=== PATIENT | female | born 1970 | race Caucasian/White ===

== ENCOUNTER 2018-04-06 15:19 | Observation (INO) | payer OTHER ==
[2018-04-06] MEDS ORDERED: TORAdol 30 mg Injection IV ONE (15:35)
[2018-04-06] MEDS ORDERED: Sodium Chloride 0.9% 1000 ML 1,000 ML IV STA (15:35)
[2018-04-06] MEDS ORDERED: TORAdol 30 mg Injection ONE (15:39)
--- NOTE | 2018-04-06 15:41 | ERPHSYRPT ---
- History of Present Illness Time Seen by Provider: 04/06/18 15:36 Historian: patient Exam Limitations: no limitations Patient Subjective Stated Complaint: [place] something burst or rupture in lower right quadrant of abdomen Triage Nursing Assessment: Pt stated that she felt something burst in her right lower quadrant and it immediately became warm to the touch, was laying on the couch and felt a sharp pain and when she sat up is when she felt something burst , vitals wnl, pulses normal, bowel sounds heard in all 4 quadrants, had been to the MD earlier today for a UTI Physician History: 42-year-old white female arrives with complaint of right lower quadrant abdominal pain since 4:30 this morning she also states she has some right flank pain. Pain is described as sharp severe. Patient states that she was seen initially by her family doctor thought to have a urinary tract infection however at home she states she suddenly felt markedly worse and felt like she had a tearing pain in her right lower quadrant. She has no vomiting no diarrhea no melena no hematochezia no urinary symptoms. Past medical history is negative. Past surgical history is tubal ligation. . Social history denies tobacco alcohol or illicit drug use. Timing/Duration: today (pain began this morning at 04:30, became much worse this afternoon) Activities at Onset: none Quality: sharpness Abdominal Pain Onset Location: RLQ, flank (ight flank) Pain Radiation: RLQ, flank (right flank) Severity of Pain-Max: moderate Severity of Pain-Current: moderate Modifying Factors: Improves With: nothing Associated Symptoms: No back, No chest pain, No diaphoresis, No diarrhea, No fever/chills, No fatigue, No headache, No heartburn, No loss of appetite, No nausea, No neck pain, No rash, No shortness of breath, No syncope, No vomiting, No weakness Previous symptoms: no prior history, recently seen (seen by her family doctor today) Allergies/Adverse Reactions: No Known Drug Allergies Allergy (Verified 04/06/18 15:31) Home Medications: Esomeprazole Magnesium [Heartburn Treatment] 20 mg PO HS 04/06/18 [History] Sulfamethoxazole/Trimethoprim [Sulfamethoxazole-Tmp Ds Tablet] 1 each PO BID [History] Trazodone HCl 50 mg [Desyrel 50 mg] 50 mg PO BID 04/06/18 [History] - Review of Systems Constitutional: No Fever, No Chills Eyes: No Symptoms Ears, Nose, & Throat: No Symptoms Respiratory: No Cough, No Dyspnea Cardiac: No Chest Pain, No Edema, No Syncope Abdominal/Gastrointestinal: Abdominal Pain, No Nausea, No Vomiting, No Diarrhea , No Constipation, No Hematemesis, No Hematochezia, No Melena, No Dysphagia, No Appetite Changes Genitourinary Symptoms: Flank Pain (Right flank pain), No Dysuria Musculoskeletal: No Back Pain, No Neck Pain Skin: No Rash Neurological: No Dizziness, No Focal Weakness, No Sensory Changes Psychological: No Symptoms Endocrine: No Symptoms All Other Systems: Reviewed and Negative - Past Medical History Pertinent Past Medical History: Yes GI Medical History: GERD - Past Surgical History Past Surgical History: Yes Genitourinary: Other Female Surgical History: Tubal Ligation (she smokes) - Social History Smoking Status: Never smoker Exposure to second hand smoke: No Drug Use: none Patient Lives Alone: No - Female History Hx Now: No (tubal) - Nursing Vital Signs Nursing Vital Signs: Initial Vital Signs Temperature 97.7 F 04/06/18 15:19 Pulse Rate 59 L 04/06/18 15:19 Blood Pressure 123/55 04/06/18 15:19 O2 Sat by Pulse Oximetry 100 04/06/18 15:19 Pain Scale Pain Intensity 10 - Physical Exam General Appearance: moderate distress ( and drinks), alert Eye Exam: PERRL/EOMI, eyes nml inspection Ears, Nose, Throat Exam: normal ENT inspection, pharynx normal, moist mucous membranes Neck Exam: normal inspection, non-tender, supple, full range of motion Respiratory Exam: normal breath sounds, lungs clear, No respiratory distress Cardiovascular Exam: regular rate/rhythm, normal heart sounds, No murmur, No tachycardia, No bradycardia Gastrointestinal/Abdomen Exam: soft, normal bowel sounds, tenderness (right lower quadrant tenderness), No mass Back Exam: normal inspection, normal range of motion, No CVA tenderness, No vertebral tenderness Extremity Exam: normal inspection, normal range of motion, pelvis stable Neurologic Exam: alert, oriented x 3, cooperative, 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 CT findings favor acute appendicitis with free fluid. No perforation or walled off fluid collection. 2. Incidental hiatal hernia) Ordered Tests: Active Orders 24 hr Category Date Time Status IV Insertion STAT Care 04/06/18 15:35 Active ABDOMEN AND PELVIS W CONTRAST [CT] Stat Exams 04/06/18 16:42 Completed AMYLASE Stat Lab 04/06/18 15:50 Completed CBC W DIFF Stat Lab 04/06/18 15:50 Completed CMP Stat Lab 04/06/18 15:50 Completed HCG QUALITATIVE,SERUM Stat Lab 04/06/18 15:50 Completed LIPASE Stat Lab 04/06/18 15:50 Completed UA W/RFX UR CULTURE Stat Lab 04/06/18 16:10 Completed Medication Summary Generic Name Dose Route Start Last Admin Trade Name Freq PRN Reason Stop Dose Admin Ceftriaxone Sodium/Dextrose 1 g in 50 mls @ 100 mls/hr 04/06/18 17:34 Rocephin 1 Gm-D5w 50 Ml Bag IV 04/06/18 18:03 STAT STA Morphine Sulfate 4 mg 04/06/18 17:45 Morphine Sulfate 4 Mg Inj IV 04/06/18 17:46 STAT ONE Discontinued Medications Generic Name Dose Route Start Last Admin Trade Name Freq PRN Reason Stop Dose Admin Sodium Chloride 1,000 mls @ 999 mls/hr 04/06/18 15:35 Sodium Chloride 0.9% 1000 Ml IV 04/06/18 16:35 .Q1H1M STA Ketorolac Tromethamine 30 mg 04/06/18 15:35 04/06/18 15:54 Toradol 30 Mg Injection IV 04/06/18 15:36 30 mg STAT ONE Administration Ketorolac Tromethamine Confirm 04/06/18 15:39 Toradol 30 Mg Injection Administered 04/06/18 15:40 Dose 30 mg .ROUTE .STK-MED ONE Ondansetron HCl 4 mg 04/06/18 15:45 04/06/18 16:02 Zofran 4 Mg/2 Ml Vial IV 04/06/18 15:46 4 mg STAT ONE Administration Ondansetron HCl Confirm 04/06/18 15:58 Zofran 4 Mg/2 Ml Vial Administered 04/06/18 15:59 Dose 4 mg .ROUTE .STK-MED ONE Lab/Rad Data: Laboratory Result Diagrams 04/06/18 15:50 04/06/18 15:50 Laboratory Results 04/06/18 04/06/18 04/06/18 Range/Units 16:10 15:50 15:50 WBC (4.0-10.5) K/mm3 RBC (4.1-5.4) M/mm3 Hgb (12.0-16.0) gm/dl Hct (35-47) % MCV (78-100) fl MCH (26-32) pg MCHC (32-36) g/dl RDW (11.5-14.0) % Plt Count (150-450) K/mm3 MPV (6-9.5) fl Gran % (36.0-66.0) % Eos # (Auto) (0-0.5) Absolute Lymphs (auto) (1.0-4.6) Absolute Monos (auto) (0.0-1.3) Lymphocytes % (24.0-44.0) % Monocytes % (0.0-12.0) % Eosinophils % (0.00-5.0) % Basophils % (0.0-0.4) % Absolute Granulocytes (1.4-6.9) Basophils # (0-0.4) Sodium 139 (137-145) mmol/L Potassium 3.6 (3.5-5.1) mmol/L Chloride 104 (98-107) mmol/L Carbon Dioxide 22 (22-30) mmol/L Anion Gap 17.1 H (5-15) MEQ/L BUN 13 (7-17) mg/dL Creatinine 0.88 (0.52-1.04) mg/dL Estimated GFR > 60.0 ML/MIN Glucose 122 H (74-106) mg/dL Calcium 9.3 (8.4-10.2) mg/dL Total Bilirubin 1.00 (0.2-1.3) mg/dL AST 21 (14-36) U/L ALT 17 (0-35) U/L Alkaline Phosphatase 82 (38-126) U/L Serum Total Protein 8.6 H (6.3-8.2) g/dL Albumin 5.1 H (3.5-5.0) g/dL Amylase 73 (30-110) U/L Lipase 63 (23-300) U/L Serum , Qual NEGATIVE (Negative) Urine Color TANA (YELLOW) Urine Appearance SLIGHTLY CLOUDY (CLEAR) Urine pH 6.0 (5-6) Ur Specific Golva 1.026 (1.005-1.025) Urine Protein 30 (Negative) Urine Ketones TRACE (NEGATIVE) Urine Blood NEGATIVE (0-5) Tunde/ul Urine Nitrite NEGATIVE (NEGATIVE) Urine Bilirubin NEGATIVE (NEGATIVE) Urine Urobilinogen 4 (0-1) mg/dL Ur Leukocyte Esterase NEGATIVE (NEGATIVE) Urine WBC (Auto) 3-5 (0-5) /HPF Urine RBC (Auto) 6-10 (0-2) /HPF U Epithel Cells (Auto) RARE (FEW) /HPF Urine Bacteria (Auto) FEW (NEGATIVE) /HPF Urine Mucus (Auto) MANY (NEGATIVE) /HPF Urine Culture Reflexed NO (NO) Urine Glucose NEGATIVE (NEGATIVE) mg/dL 04/06/ Range/Units 15:50 WBC 19.1 H (4.0-10.5) K/mm3 RBC 4.77 (4.1-5.4) M/mm3 Hgb 14.3 (12.0-16.0) gm/dl Hct 43.6 (35-47) % MCV 91.4 (78-100) fl MCH 30.0 (26-32) pg MCHC 32.8 (32-36) g/dl RDW 13.6 (11.5-14.0) % Plt Count 146 L (150-450) K/mm3 MPV 12.4 H (6-9.5) fl Gran % 86.0 H (36.0-66.0) % Eos # (Auto) 0.01 (0-0.5) Absolute Lymphs (auto) 1.76 (1.0-4.6) Absolute Monos (auto) 0.87 (0.0-1.3) Lymphocytes % 9.2 L (24.0-44.0) % Monocytes % 4.6 (0.0-12.0) % Eosinophils % 0.1 (0.00-5.0) % Basophils % 0.1 (0.0-0.4) % Absolute Granulocytes 16.42 H (1.4-6.9) Basophils # 0.01 (0-0.4) Sodium (137-145) mmol/L Potassium (3.5-5.1) mmol/L Chloride (98-107) mmol/L Carbon Dioxide (22-30) mmol/L Anion Gap (5-15) MEQ/L BUN (7-17) mg/dL Creatinine (0.52-1.04) mg/dL Estimated GFR ML/MIN Glucose (74-106) mg/dL Calcium (8.4-10.2) mg/dL Total Bilirubin (0.2-1.3) mg/dL AST (14-36) U/L ALT (0-35) U/L Alkaline Phosphatase (38-126) U/L Serum Total Protein (6.3-8.2) g/dL Albumin (3.5-5.0) g/dL Amylase (30-110) U/L Lipase (23-300) U/L Serum , Qual (Negative) Urine Color (YELLOW) Urine Appearance (CLEAR) Urine pH (5-6) Ur Specific Golva (1.005-1.025) Urine Protein (Negative) Urine Ketones (NEGATIVE) Urine Blood (0-5) Tunde/ul Urine Nitrite (NEGATIVE) Urine Bilirubin (NEGATIVE) Urine Urobilinogen (0-1) mg/dL Ur Leukocyte Esterase (NEGATIVE) Urine WBC (Auto) (0-5) /HPF Urine RBC (Auto) (0-2) /HPF U Epithel Cells (Auto) (FEW) /HPF Urine Bacteria (Auto) (NEGATIVE) /HPF Urine Mucus (Auto) (NEGATIVE) /HPF Urine Culture Reflexed (NO) Urine Glucose (NEGATIVE) mg/dL - Progress Progress: improved Progress Note: 04/06/18 17:34 This is a 47-year-old white female previously healthy arrives with complaint of right lower quadrant pain since 4:30 this morning. She apparently had been seen by her family doctor felt to have a urinary tract infection however this afternoon she felt like she got markedly worse. Patient arrives with complaint of right lower quadrant abdominal pain. Patient with a white count of 19,000. Patient with CT of the abdomen and pelvis remarkable for acute appendicitis with free fluid. There are no perforations or walled off fluid collections. Patient had initially been given Toradol and 1 L of normal saline as well Zofran for nausea and vomiting who is a get admitted to him discussed the patient's case with Dr. Mora. Will go ahead and place patient on observation will give patient Rocephin 1 g IV will write for morphine for pain normal saline to run at 100 mL per hour. . - Departure Time of Disposition: 17:36 Departure Disposition: Observation Clinical Impression: Abdominal pain Qualifiers: Abdominal location: right lower quadrant Qualified Code(s): R10.31 - Right lower quadrant pain Acute appendicitis Qualifiers: Acute appendicitis type: unspecified acute appendicitis type Qualified Code(s) : K35.80 - Unspecified acute appendicitis Condition: Fair Critical Care Time: No Referrals: DICK DESOUZA [Primary Care Provider] -
[2018-04-06] MEDS ORDERED: Zofran 4 MG/2 ML VIAL IV ONE ×2 (15:45→18:21)
[2018-04-06] MEDS ORDERED: Zofran 4 MG/2 ML VIAL ONE (15:58)
[2018-04-06 16:00] LABS: BASOPHIL % 0.1 % (0.0-0.4); Basophil (Absolute #) 0.01 (0-0.4); Eosinophil % 0.1 % (0.00-5.0); Eosinophil (Absolute #) 0.01 (0-0.5); Granulocyte Absolute (ANC) 16.42 (1.4-6.9); Hematocrit 43.6 % (35-47); Hemoglobin 14.3 gm/dl (12.0-16.0); Lymphocyte (Absolute #) 1.76 (1.0-4.6); Lymphocytes % 9.2 % (24.0-44.0); Mean Cell Volume 91.4 fl (78-100); Mean Corpuscular Hgb Concent. 32.8 g/dl (32-36); Mean Platelet Volume 12.4 fl (6-9.5); Monocyte (Absolute #) 0.87 (0.0-1.3); Monocytes % 4.6 % (0.0-12.0); Platelet Count 146 K/mm3 (150-450); Red Blood Count 4.77 M/mm3 (4.1-5.4); Red Cell Distribution Width 13.6 % (11.5-14.0); White Blood Count 19.1 K/mm3 (4.0-10.5)
[2018-04-06 16:39] LABS: Appearance SLIGHTLY CLOUDY (CLEAR); Bilirubin NEGATIVE (NEGATIVE); Blood NEGATIVE Ery/ul (0-5); Glucose NEGATIVE (NEGATIVE); Ketones TRACE (NEGATIVE); Leukocyte Esterase NEGATIVE (NEGATIVE); Nitrite NEGATIVE (NEGATIVE); Protein,Urine Dip 30 (Negative); Specific Gravity 1.026 (1.005-1.025); Urobilinogen 4 mg/dL (0-1)
[2018-04-06 16:40] LABS: ALBUMIN 5.1 g/dL (3.5-5.0); ALKALINE PHOSPHATASE 82 U/L (38-126); AMYLASE 73 U/L (30-110); ANION GAP 17.1 MEQ/L (5-15); BLOOD UREA NITROGEN 13 mg/dL (7-17); CHLORIDE 104 mmol/L (98-107); Calcium 9.3 mg/dL (8.4-10.2); Carbon Dioxide 22 mmol/L (22-30); Creatinine 1 0.88 mg/dL (0.52-1.04); Glucose 122 mg/dL (74-106); LIPASE 63 U/L (23-300); Potassium 3.6 mmol/L (3.5-5.1); SGOT/AST 21 U/L (14-36); SGPT/ALT 17 U/L (0-35); SODIUM 139 mmol/L (137-145); Total Protein 8.6 g/dL (6.3-8.2)
--- NOTE | 2018-04-06 17:28 | XRAY ---
Indication: Right lower quadrant pain. Multiple contiguous axial images obtained through the abdomen and pelvis prior to and following 80 cc Isovue 370 contrast only. Comparison: None Lung bases demonstrates bibasilar dependent atelectasis. No infiltrate or effusion. Small hiatal hernia. Noncontrasted images are negative for pathologic visceral calcifications/calculi. A few bilateral pelvic phleboliths. Noncontrasted stomach and bowel loops appear nonobstructed. Appendix is abnormally prominent up to 21 mm diameter with wall enhancement and periappendiceal stranding favoring acute appendicitis. Small free fluid but no walled off fluid collection or free air. Postcontrast images demonstrates normal visceral enhancement and renal excretion. Remaining liver, gallbladder, pancreas, spleen, adrenal glands, kidneys, ureters, bladder, uterus, and aorta appear normal in CT appearance and attenuation. No pathologic retroperitoneal lymphadenopathy. Osseous structures intact. No ventral or inguinal hernias. Impression: 1. CT findings favoring acute appendicitis with free fluid. No perforation or walled off fluid collection. 2. Incidental hiatal hernia. Comment: Telephone report given to Dr. Cabrales at 1719 hrs. on April 06, 2018.
[2018-04-06] MEDS ORDERED: ROCEPHIN 1 Gm-D5w 50 ml Bag** 1 G/50 ML IVPB IV STA (17:34)
[2018-04-06] MEDS ORDERED: MORPHINE SULFATE 4 MG INJ IV ONE (17:45)
[2018-04-06] MEDS ORDERED: MORPHINE SULFATE 4 MG INJ ONE (17:46)
[2018-04-06] MEDS ORDERED: ROCEPHIN 1 Gm-D5w 50 ml Bag** 1 G/50 ML IVPB IV ONE (17:48)
[2018-04-06] MEDS ORDERED: Decadron 4 MG INJ IV ONE (18:21)
[2018-04-06] MEDS ORDERED: BRIDION 200MG/2ML IV ONE (18:21)
[2018-04-06] MEDS ORDERED: Zemuron 100 MG/10 ML IV ONE (18:21)
[2018-04-06] MEDS ORDERED: DIPRIVAN 200 MG/20 ML IV ONE (18:21)
[2018-04-06] MEDS ORDERED: Quelicin Fliptop 200 MG/10 ML IV ONE (18:21)
[2018-04-06] MEDS ORDERED: Zofran 4 MG/2 ML VIAL IV PRN (18:22)
[2018-04-06] MEDS ORDERED: MORPHINE SULFATE 4 MG INJ IV PRN (18:22)
[2018-04-06] MEDS ORDERED: Sodium Chloride 0.9% 1000 ML 1,000 ML IV SCH (18:22)
[2018-04-06 18:52] LABS: INR 1.11 (0.8-3.0)
[2018-04-06] MEDS ORDERED: Pepcid 20 MG VIAL IV ONE ×2 (19:43→19:58)
[2018-04-06] MEDS ORDERED: Lactated Ringers 1,000 ML IV SCH (20:00)
[2018-04-06] MEDS ORDERED: MEFOXIN 2 GM PREMIX** 2 GM/50 ML ML IV SCH (20:00)
[2018-04-06] MEDS ORDERED: SUBLIMAZE 100 MCG/2 ML ONE ×2 (20:17→22:46)
[2018-04-06] MEDS ORDERED: Versed 2 MG/2 ML Injection ONE (20:19)
[2018-04-06] MEDS ORDERED: Sensorcaine 0.25% 10 ML ONE (20:38)
[2018-04-06] MEDS: MORPHINE SULFATE 4 MG INJ IV PRN (23:34)
[2018-04-06] MEDS: Zosyn 3.375GM/100 Ml D5W 3.375 GM/100 ML IVPB IV SCH (23:39)
[2018-04-07] MEDS: MORPHINE SULFATE 4 MG INJ IV PRN ×2 (03:19→10:15)
[2018-04-07 06:03] LABS: Basophil (Absolute #) 0 (0-0.4); Eosinophil (Absolute #) 0 (0-0.5); Granulocyte Absolute (ANC) 15.89 (1.4-6.9); Granulocytes % 93.4 % (36.0-66.0); Hematocrit 37.1 % (35-47); Hemoglobin 11.9 gm/dl (12.0-16.0); Lymphocyte (Absolute #) 0.66 (1.0-4.6); Lymphocytes % 3.9 % (24.0-44.0); Mean Cell Volume 92.5 fl (78-100); Mean Corpuscular Hgb Concent. 32.1 g/dl (32-36); Mean Platelet Volume 12.6 fl (6-9.5); Monocyte (Absolute #) 0.46 (0.0-1.3); Monocytes % 2.7 % (0.0-12.0); Platelet Count 135 K/mm3 (150-450); Red Blood Count 4.01 M/mm3 (4.1-5.4); Red Cell Distribution Width 13.6 % (11.5-14.0)
[2018-04-07 06:18] LABS: ALBUMIN 3.9 g/dL (3.5-5.0); ALKALINE PHOSPHATASE 58 U/L (38-126); ANION GAP 12.6 MEQ/L (5-15); BLOOD UREA NITROGEN 11 mg/dL (7-17); CHLORIDE 106 mmol/L (98-107); Calcium 8.4 mg/dL (8.4-10.2); Carbon Dioxide 24 mmol/L (22-30); Creatinine 1 0.79 mg/dL (0.52-1.04); Glucose 150 mg/dL (74-106); SGOT/AST 14 U/L (14-36); SGPT/ALT 12 U/L (0-35); SODIUM 137 mmol/L (137-145); Total Protein 6.9 g/dL (6.3-8.2)
[2018-04-07] MEDS ORDERED: Lactated Ringers 1,000 ML IV ONE (06:34)
[2018-04-07] MEDS: Lactated Ringers 1,000 ML IV SCH ×4 (06:36→23:51)
[2018-04-07] MEDS: Zosyn 3.375GM/100 Ml D5W 3.375 GM/100 ML IVPB IV SCH ×3 (06:37→22:00)
[2018-04-07 06:41] LABS: Mean Corpuscular Hemoglobin 29.6 pg (26-32)
[2018-04-07 06:52] LABS: Potassium 4.7 mmol/L (3.5-5.1)
[2018-04-07 07:31] LABS: Slide Review 1 YES
--- NOTE | 2018-04-07 08:10 | HP ---
CHIEF COMPLAINT: Abdominal pain. HISTORY OF PRESENT ILLNESS: This patient presents with acute onset of right lower quadrant pain starting this morning. She had been on antibiotics recently for urinary tract infection. She denies any nausea, vomiting, chest pain, shortness of breath or dysuria currently. She does have less of an appetite today. She has not been running a fever. She has not had anything happen like this before. PAST MEDICAL HISTORY: None. PAST SURGICAL HISTORY: Tubal. MEDICATIONS: Proton pump inhibitor, antibiotic, sleep medication. ALLERGIES: NKDA. SOCIAL HISTORY: No tobacco. No alcohol. FAMILY HISTORY: Denies any family history of inflammatory bowel disease, cancer, problems with anesthesia or bleeding disorders. LAB DATA AND TESTS: CT scan with findings consistent with acute appendicitis. White blood cell 19.1, hemoglobin 14.3, PLT 146,000. Glucose 122. Creatinine 0.88. Sodium 135, potassium 3.6, chloride 104, bicarb 22, potassium 9.3, albumin 5.1. Liver function tests within normal limits. HCG negative. PHYSICAL EXAMINATION: GENERAL: Mild distress. HEENT: Sclera nonicteric. Extraocular movements intact. NECK: Supple. No JVD. CHEST: Nonlabored breathing. ABDOMEN: Soft, nondistended, focally tender in the right lower quadrant with voluntary guarding. No signs of acute peritonitis. NEURO: Awake, alert, oriented. PSYCH: Appropriate mood and affect. ASSESSMENT: Acute appendicitis. PLAN: Laparoscopic possible open appendectomy.
--- NOTE | 2018-04-07 08:34 | OP ---
SURGERY DATE/TIME: 04/06/20182044 PREOPERATIVE DIAGNOSIS: Acute appendicitis. POSTOPERATIVE DIAGNOSIS: Acute perforated appendicitis. PROCEDURE: Laparoscopic appendectomy (difficult due to retrocecal appendix and perforation.). SURGEON: Eldon Mora M.D. ANESTHESIA: General. SPECIMEN: Appendix. ESTIMATED BLOOD LOSS: Minimal. COMPLICATIONS: None. FINDINGS: Perforated appendicitis with a retrocecal appendix and purulent fluid in the pelvis and right gutter. INDICATION: This patient presents with acute onset of abdominal pain starting today. CT scan showed acute appendicitis. After discussing risks and benefits of laparoscopic possible open appendectomy the patient wishes to proceed. DESCRIPTION OF PROCEDURE: The patient was brought to the operating room, placed supine on the operating room table, placed under general anesthesia. The abdomen was prepped and draped in sterile fashion. The patient voided before the operation. A small incision was made at the superior aspect of the umbilicus. Blunt dissection was performed down to the fascia. The fascia was lifted up with a clamp. Veress needle was inserted. Pneumoperitoneum obtained. A 5 mm optical trocar was inserted with good visualization. The abdomen was entered. Additional 5 mm trocar was placed suprapubic and 12 mm trocar in left lower quadrant both under direct visualization. The patient was placed in Trendelenburg position and rolled to the left. Immediately upon entering the abdomen it was clear this was perforated appendix. There is purulent fluid into the pelvis and right gutter. However the appendix was not easily identified initially. The cecum required mobilization and this required additional time and difficulty. The cecum was mobilized medially. The terminal ileum was also stuck to the side wall and this was freed off and mobilized medially this was done with a [place] LigaSure using both the vessel sealer and cold cut functions. Eventually the cecum was medialized enough and the retrocecal appendix was identified. The base of the appendix was then freed up and a window was created between the mesoappendix and the appendix base with the [place] LigaSure. A 45 wide SAMMY stapler was then used to transect the base of the appendix. The base of the appendix was then retracted and the appendix followed down into the retroperitoneum. Over on the lateral side wall the tip of the appendix was then seen with a nickel-sized hole in it. Using blunt dissection the tip of the appendix was freed off the side wall. Eventually the dissection areas were met and the rest of the mesoappendix was transected with a LigaSure working from both the tip and from the proximal appendix and eventually this was completely transected. The appendix was placed in a bag and removed through the 12 mm trocar. The trocar was reinserted. Irrigation of the right gutter and pelvis was performed and up over the liver as there was some purulent fluid up over the right side of the liver as well. There did not appear to be any purulence on the left side of the abdomen. The staple line and mesoappendix were evaluated. They do not appear to be bleeding. The staple lines looked excellent. The 12 mm trocar site was removed and closed with 0 Vicryl suture on suture passer under direct visualization. The remaining trocar was removed under direct visualization. Abdomen desufflated through umbilical trocar and this trocar removed. The wounds were injected with 0.25% Marcaine. The wounds closed with 4-0 Vicryl suture. Steri-Strips and dressings were applied. The patient was recovered and taken to PACU in stable condition.
[2018-04-07] MEDS: NORCO 5/325 MG PO PRN ×2 (13:12→21:59)
[2018-04-07] MEDS ORDERED: ESOMEPRAZOLE MAGNESIUM 20 MG PO SCH (22:00)
[2018-04-07] MEDS ORDERED: Protonix 40MG Tablet PO SCH (22:00)
[2018-04-08 05:52] LABS: Hemoglobin 10.2 gm/dl (12.0-16.0); Mean Cell Volume 93.6 fl (78-100); Mean Corpuscular Hemoglobin 29.8 pg (26-32); Mean Corpuscular Hgb Concent. 31.9 g/dl (32-36); Mean Platelet Volume 12.4 fl (6-9.5); Platelet Count 121 K/mm3 (150-450); Red Blood Count 3.42 M/mm3 (4.1-5.4); Red Cell Distribution Width 13.6 % (11.5-14.0); White Blood Count 9.6 K/mm3 (4.0-10.5)
[2018-04-08] MEDS: Zosyn 3.375GM/100 Ml D5W 3.375 GM/100 ML IVPB IV SCH (05:52)
[2018-04-08 06:10] LABS: ANION GAP 10.6 MEQ/L (5-15); BLOOD UREA NITROGEN 10 mg/dL (7-17); CHLORIDE 107 mmol/L (98-107); Calcium 8.2 mg/dL (8.4-10.2); Carbon Dioxide 26 mmol/L (22-30); Creatinine 1 0.81 mg/dL (0.52-1.04); Glucose 100 mg/dL (74-106); SODIUM 139 mmol/L (137-145)
[2018-04-08 06:47] LABS: Potassium 3.7 mmol/L (3.5-5.1)
[2018-04-08] MEDS: NORCO 5/325 MG PO PRN (08:24)
[2018-04-08 09:52] VITALS: BP 118/57; PULSE 63; O2SAT 99
== END 2018-04-08 10:15 | disposition home or self-care (01) ==
LOC: ED 15:19 → MED SURG 18:20
PROVIDERS: ADMIT Surgery; ATTEND Surgery
DX: K35.80 Unspecified acute appendicitis (principal)
CPT/HCPCS: 00840; 36415; 44970; 74177; 80048; 80053; 81001; 81025; 82150; 83690; 85025; 85027; 85610; 93268; 94010; 94762; 96365; 96374; 96375; 99140; 99285; G0378; J0330; J0694; J0696; J1100; J1885; J2250; J2270; J2405; J2543; J2704; J3010; L0625; A9270-GY

== ENCOUNTER 2022-04-22 10:20 | Day surgery (SDC) | payer OTHER ==
--- NOTE | 2022-04-22 08:48 | HP ---
DATE OF SURGERY: 04/22/2022 HISTORY OF PRESENT ILLNESS: The patient is a 51-year-old with no prior colonoscopy. No bloody stools. No change in habits. No new pain. Family history negative for colon cancer. The patient is in need of screening colonoscopy. PAST MEDICAL HISTORY: The patient wears glasses. She had a little bit of reflux in the past. PAST SURGICAL HISTORY: Appendectomy. MEDICATIONS: Omeprazole, Estroven Maximum Strength. ALLERGIES: NKDA. FAMILY HISTORY: Negative for colon cancer. SOCIAL HISTORY: Former smoker. No alcohol abuse. REVIEW OF SYSTEMS: Fourteen systems reviewed. No chest pain or palpitations. Other systems negative or noncontributory as above and per preadmission questionnaire. PHYSICAL EXAMINATION: Height 5' 7", weight 196 pounds. BMI 30.7. GENERAL: No acute distress. HEENT: Sclerae nonicteric. NECK: No JVD. CHEST: Equal excursion, nonlabored breathing. CVS: Regular rate and rhythm. ABDOMEN: Soft. No peritoneal signs. EXTREMITIES: No significant edema. NEURO: Alert, oriented, moving extremities symmetrically. RECTAL: Deferred timed to endoscopy exam. PSYCH: Appropriate mood and affect. SKIN: Dry. IMPRESSION: No prior colonoscopy. The patient is in need of screening colonoscopy. I feel she is a candidate. She was shown the risk sheet explained the procedure in detail including but not limited to bleeding or infection, risk of bowel injury or perforation possibly requiring further procedure, risk of missed or nondiagnosis or incomplete exam possibly requiring barium enema, other studies or procedures, general risk of anesthesia or sedation, risk of bowel prep but not limited to, consent obtained. Will proceed with outpatient screening colonoscopy.
[~2022-04-22 10:20] MED LIST: Lactated Ringers 1,000 ML IV SCH
[2022-04-22] MEDS ORDERED: Lactated Ringers 1,000 ML IV ONE (10:31)
[2022-04-22] MEDS ORDERED: DIPRIVAN 200 MG/20 ML IV ONE ×2 (12:46→13:02)
[2022-04-22] MEDS ORDERED: Versed 2 MG/2 ML Injection ONE (12:46)
[2022-04-22] MEDS ORDERED: Xylocaine-Mpf 2% 5 Ml Vial ONE (12:50)
[2022-04-22 14:24] VITALS: BP 141/80; PULSE 61; O2SAT 100
--- NOTE | 2022-04-23 08:57 | OP ---
SURGERY DATE/TIME: 04/22/2022 1248 PREOPERATIVE DIAGNOSIS: Need for screening colonoscopy. POSTOPERATIVE DIAGNOSES: 1) ASA Class III. 2) Fair limited prep. 3) Mild diverticulosis. 4) Small polyps transverse colon and rectum. 5) Withdrawal time nine minutes. PROCEDURES: 1) Colonoscopy to cecum. 2) Hot biopsy transverse colon polyp. 3) Hot biopsy polypectomy small rectal polyp x2. SURGEON: Dr. Alex Catherine. ANESTHESIA: MAC. ESTIMATED BLOOD LOSS: Minimal. INDICATIONS: As noted above. Risks and benefits explained in detail but not limited to and consent obtained. DESCRIPTION OF PROCEDURE AND FINDINGS: The patient is taken to the endoscopy room. MAC anesthesia induced. After official time out and no disagreement with planned procedure, digital rectal exam did not reveal any rectal masses. Video colonoscope inserted and passed up through the slightly tortuous sigmoid, descending, transverse and ascending colon around to the cecum. Appendiceal orifice and valve well visualized and photo documented. Prep overall was fair but on the limited side with liquidy semisolid stool suctioned irrigated out as clear as possible. The scope is carefully withdrawn over the next nine minutes. Very small polyp in the transverse colon, small polyp x2 in the rectum removed with hot biopsy forceps. There were no signs of any large polyps, masses or obstructing lesion. She did have some mild diverticulosis in the left colon. No signs of any large polyps, masses or obstructing lesions. The scope is withdrawn. There were no immediate complications.
== END 2022-04-22 14:30 | disposition home or self-care (01) ==
LOC: SDC 10:20
PROVIDERS: ATTEND Surgery
DX: Z12.11 Encounter for screening for malignant neoplasm of colon (principal); K57.30 Diverticulosis of large intestine without perforation or abscess without bleeding; K63.5 Polyp of colon
CPT/HCPCS: 81025; J2250; J2704